=== PATIENT | male | born 1970 | race Caucasian/White ===

== ENCOUNTER 2023-07-01 06:40 | Observation (INO) ==
--- NOTE | 2023-05-22 15:11 | PAT Medication Instructions ---
Medication Instructions Date of Service May 22, 2023 Home Medications amlodipine 5 mg tablet 10 mg PO QAM aspirin 81 mg tablet,delayed release (Adult Low Dose Aspirin) 81 mg PO QAM benazepril 20 mg tablet 20 mg PO QAM cetirizine 10 mg capsule (Zyrtec) 10 mg PO UD PRN allergy symptoms omeprazole 20 mg capsule,delayed release 20 mg PO QAM acetaminophen 650 mg tablet,extended release (Tylenol Arthritis Pain) 650 mg PO UD PRN Pain celecoxib 100 mg capsule (Celebrex) 100 mg PO QAM naltrexone 8 mg-bupropion 90 mg tablet,extended release (Contrave) 2 tab PO BID ascorbic acid (vitamin C) 1,000 mg tablet (Vitamin C) 1 g PO QAM nnplvos-xkxjcapsi-qewz tablet 1 tab PO QAM potassium 99 mg tablet 99 mg PO QAM warfarin 2.5 mg tablet 2.5 mg PO 2XWK warfarin 5 mg tablet 5 mg PO 5XWK ASK your surgeon for instructions celecoxib 100 mg capsule (Celebrex) 100 mg PO QAM ASK your prescriber and surgeon warfarin 2.5 mg tablet 2.5 mg PO 2XWK warfarin 5 mg tablet 5 mg PO 5XWK STOP taking 24 hours before surgery naltrexone 8 mg-bupropion 90 mg tablet,extended release (Contrave) 2 tab PO BID DO NOT take the morning of surgery benazepril 20 mg tablet 20 mg PO QAM cetirizine 10 mg capsule (Zyrtec) 10 mg PO UD PRN allergy symptoms ascorbic acid (vitamin C) 1,000 mg tablet (Vitamin C) 1 g PO QAM avtlwdr-kjtovduqd-iten tablet 1 tab PO QAM potassium 99 mg tablet 99 mg PO QAM Take morning of surgery With a small sip of water, OTHERWISE NOTHING TO EAT OR DRINK AFTER MIDNIGHT: amlodipine 5 mg tablet 10 mg PO QAM aspirin 81 mg tablet,delayed release (Adult Low Dose Aspirin) 81 mg PO QAM (continue as normal unless told otherwise by surgeon) omeprazole 20 mg capsule,delayed release 20 mg PO QAM acetaminophen 650 mg tablet,extended release (Tylenol Arthritis Pain) 650 mg PO UD PRN Pain (if needed) Take evening before surgery cetirizine 10 mg capsule (Zyrtec) 10 mg PO UD PRN allergy symptoms (if needed) acetaminophen 650 mg tablet,extended release (Tylenol Arthritis Pain) 650 mg PO UD PRN Pain (if needed) Other Notes If you have any questions please call us at [phone] or [phone] or [phone] or [phone]
--- NOTE | 2023-05-29 15:57 | Anesthesiology Consultation ---
Date of Service May 29, 2023 Assessment & Plan (1) Encounter for pre-operative examination: - Check coags AM DOS (warfarin instructions per surgeon/prescriber- per patient, has previously done lovenox bridging when holding warfarin in the past. Advised patient that if decision for lovenox bridging again, lovenox would need to be held 24 hours prior to surgery for neuraxial anesthesia- patient voiced understanding and states he will coordinate with [facility]) - COVID screening: Per assessment on 05/29: No known COVID-19 positive contacts or current COVID-19 related symptoms. No recent Covid positive test result. - Outpatient joint assessment: Pt currently scheduled for inpatient pathway. If surgeon requests review for outpatient joint pathway, patient is not recommended candidate for outpatient joint program from anesthesia standpoint. - S/P Right knee arthroscopy, PMM (05/09/20): [place] [facility] [place] Review Chart Review: Acceptable Risk for Surgery and Patient seen in Pre Admission Testing Teaching & Discussion Pre-Anesthesia Teaching/Discussion Notes: Instructed NPO after midnight before surgery,except medications with 15 cc of water. Medication instructions provided according to the PAT guidelines. History Surgery Operation Date: 07/01/23 11:10 Proposed Procedures p Left Total Hip Arthroplasty - Vic Bernal MD Height/Weight Height: 5 ft 9 in Weight: 126.4 kg Allergies Allergy/AdvReac Type Severity Reaction Status Date / Time No Known Allergies Allergy Verified 05/22/23 12:01 Medications Home Medications Medication Instructions Recorded Confirmed Last Taken amlodipine 5 mg tablet 10 mg PO QAM 07/24/18 05/28/23 08/10/21 aspirin 81 mg tablet,delayed 81 mg PO QAM 07/24/18 05/28/23 08/10/21 release (Adult Low Dose Aspirin) benazepril 20 mg tablet 20 mg PO QAM 07/24/18 05/28/23 08/10/21 cetirizine 10 mg capsule (Zyrtec) 10 mg PO UD PRN allergy symptoms 07/24/18 05/28/23 08/10/21 omeprazole 20 mg capsule,delayed 20 mg PO QAM 07/24/18 05/28/23 08/10/21 release acetaminophen 650 mg 650 mg PO UD PRN Pain 11/21/21 05/28/23 Unknown tablet,extended release (Tylenol Arthritis Pain) celecoxib 100 mg capsule (Celebrex) 100 mg PO QAM 08/21/22 05/28/23 Unknown naltrexone 8 mg-bupropion 90 mg 2 tab PO BID 01/15/23 05/28/23 Unknown tablet,extended release (Contrave) ascorbic acid (vitamin C) 1,000 mg 1 g PO QAM 05/22/23 05/28/23 Unknown tablet (Vitamin C) unxkrna-spzosjpbt-yaql tablet 1 tab PO QAM 05/22/23 05/28/23 Unknown potassium 99 mg tablet 99 mg PO QAM 05/22/23 05/28/23 Unknown warfarin 2.5 mg tablet See Rx Instructions PO .COMPLEX 05/28/23 05/28/23 Unknown warfarin 5 mg tablet See Rx Instructions PO .COMPLEX 05/28/23 05/28/23 Unknown Wheeled Walker #1 ea 05/29/23 05/29/23 Unknown Past Medical History Medical History Arthritis of left hip Factor V Leiden GERD (gastroesophageal reflux disease) HTN (hypertension) Hx of lupus anticoagulant disorder Per records Osteoarthritis Pulmonary embolism 2006, taking warfarin Factor V Leiden Sleep apnea CPAP (compliant) Exercise / Class Metabolic Activity II 4-5 Yardwork/Stairs/Walk up hill Past Family History Family History Father Deep vein thrombosis Factor V Leiden Past Surgical History Surgical History History of arthroscopy of right knee Right knee arthroscopy, PMM (05/09/20): [place] [facility] [place] History of tooth extraction WTE Hx of lymph node excision Right groin (2008), "no further issue" Hx of vasectomy Past Anesthesia History No Hx of Anesthesia Complications and No Family Hx of Anesthesia Complications History of PONV No Hx of PONV and No Hx of Motion Sickness Social History Smoking Status: Former smoker tobacco type: cigarettes Do You Dip or Chew Tobacco: No Smoking End Date: Quit 10+ years ago Hx Alcohol Use: Yes Alcohol type: hard liquor alcohol intake frequency: holidays/special occasions only Hx Substance Use: No substance use type: does not use Review of Systems Patient denies chest pain, shortness of breath, dyspnea on exertion, fever, chills, cough, wheezing, palpitations. Physical Exam Vital Signs VITALS BP 128/83 P 71 TEMP 97.9 SP02 95%RA RESP 16 PHYSICAL Full cervical extension range of motion. Full TMJ range of motion. TMD 4 finger breaths Mallampati Score 3 Dentition: intact, + crowns Lungs: clear throughout to auscultation Cardiac: regular rate and rhythm, no murmurs noted Spine: normal Carotid arteries: negative bruit Extremities: no LE edema Thick neck Lab Results Anesthesia Preop Results Results Anesthesia Widget: WBC 8.53 K/ul (4.8-10.8) 05/29/23 Hgb 14.8 g/dl (14.0-18.0) 05/29/23 Hct 42.5 % (42.0-52.0) 05/29/23 Plt 231 K/uL (130-400) 05/29/23 Na 137 mmol/L (136-145) 05/29/23 K 3.8 mmol/L (3.5-5.1) 05/29/23 Cl 104 mmol/L (98-107) 05/29/23 CO2 26 mmol/L (21-32) 05/29/23 BUN 19 mg/dl (6-23) 05/29/23 Creat 0.99 mg/dl (0.6-1.4) 05/29/23 Glucose Level 91 mg/dl (70-99(Fasting)) 05/29/23 PT 22.8 Seconds (9.0-12.0) H 05/29/23 PTT 39.6 Seconds (21.0-31.0) H 05/29/23 INR 2.2 (0.9-1.1) H 05/29/23 Blood Type B Positive 05/29/23 Antibody Screen NEGATIVE 05/29/23 Testing Electrocardiogram Date: 05/29/23 NSR at 74bpm. NS TWA. Chest X-Ray Date: 02/25/23 FINDINGS: Cardiac silhouette is enlarged. Mild right hemidiaphragmatic elevation. No pneumothorax, pleural effusion, airspace consolidation or overt pulmonary edema. Bones of the chest appear grossly intact. IMPRESSION: Cardiomegaly without acute process. Other Testing Head CT Date: 02/25/23 Indication: near syncope There is no hemorrhage, mass effect, or evidence of acute territorial ischemia by CT criteria.
--- NOTE | 2023-06-28 09:43 | History & Physical Report ---
Date of Service June 28, 2023 Assessment & Plan (1) Arthritis of left hip: 53-year-old gentleman with factor V Leiden abnormality with a history of DVT and PE in the past on chronic Coumadin therapy with an IVC filter in place with advanced left hip arthritis. He has failed conservative measures and like to have his hip replaced. Nupathe plan we will take him to the operating do left total hip placement of the risks Mente this procedure plan the patient include but not limited to DVT, PE, , neurological injury, vascular injury, bleeding problems, hematoma formation, need for further surgery in the future, dislocation, fracture, etc. The patient understands and desires to proceed. Informed consent was obtained. He will stop his Coumadin 5 days preop. He is following up with anticoagulation clinic. They are recommending an just to hold the Coumadin with no a Lovenox bridge. We will start him on a loading dose of Coumadin postoperatively. We plan to discharge to home with home health. He will follow back up with us 2 weeks postop. (2) jail (current) use of anticoagulants: (3) Factor V Leiden: (4) Presence of IVC filter: History of Present Illness Chief Complaint: . Persistent, progressive left hip pain and discomfort. Primary Care Provider: Gay Grover MD . 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 He has been through extensive conservative treatment but limited and medical management due to his factor V Leiden abnormality and presence of anticoagulation treatment. He does have factor V Leiden abnormality and on chronic Coumadin with an IVC filter in place. He had several blood clots but nothing since he is had a filter placed. He describes chronic left hip pain. His groin pain thigh pain. The more he is up and the more it hurts. Limps more the day goes on. He is having difficulty doing his work. He like to have his hip fixed. Allergies Allergy/AdvReac Type Severity Reaction Status Date / Time No Known Allergies Allergy Verified 05/22/23 12:01 Home Medications Medication Instructions Recorded Confirmed Type amlodipine 5 mg tablet 10 mg PO QAM 07/24/18 06/25/23 History aspirin 81 mg tablet,delayed 81 mg PO QAM 07/24/18 06/25/23 History release (Adult Low Dose Aspirin) benazepril 20 mg tablet 20 mg PO QAM 07/24/18 06/25/23 History cetirizine 10 mg capsule (Zyrtec) 10 mg PO UD PRN allergy symptoms 07/24/18 06/25/23 History omeprazole 20 mg capsule,delayed 20 mg PO QAM 07/24/18 06/25/23 History release acetaminophen 650 mg 650 mg PO UD PRN Pain 11/21/21 06/25/23 History tablet,extended release (Tylenol Arthritis Pain) celecoxib 100 mg capsule (Celebrex) 100 mg PO QAM 08/21/22 06/25/23 History naltrexone 8 mg-bupropion 90 mg 2 tab PO BID 01/15/23 06/25/23 History tablet,extended release (Contrave) ascorbic acid (vitamin C) 1,000 mg 1 g PO QAM 05/22/23 06/25/23 History tablet (Vitamin C) kyfqats-iftwywpsa-fgyx tablet 1 tab PO QAM 05/22/23 06/25/23 History potassium 99 mg tablet 99 mg PO QAM 05/22/23 06/25/23 History warfarin 2.5 mg tablet See Rx Instructions PO .COMPLEX 05/28/23 06/25/23 History warfarin 5 mg tablet See Rx Instructions PO .COMPLEX 05/28/23 06/25/23 History Wheeled Walker #1 ea 05/29/23 06/25/23 Rx Past Med/Surg History Medical History Arthritis of left hip Factor V Leiden GERD (gastroesophageal reflux disease) HTN (hypertension) Hx of lupus anticoagulant disorder Per records Osteoarthritis Pulmonary embolism 2006, taking warfarin Factor V Leiden Sleep apnea CPAP (compliant) Surgical History History of arthroscopy of right knee Right knee arthroscopy, PMM (05/09/20): LMA#5 at [facility] [place] History of tooth extraction WTE Hx of lymph node excision Right groin (2008), "no further issue" Hx of vasectomy Family History Father Deep vein thrombosis Factor V Leiden Social History Smoking Status: Former smoker Smoking End Date: Quit 10+ years ago; Second Hand Exposure: No; Do You Dip or Chew Tobacco: No; Hx Alcohol Use: Yes Alcohol type: hard liquor Hx Substance Use: No Preferred Language: Persian Communication Ability: Effective Accounting Coordinator Required: No Beliefs That Will Affect Care: None marital status: Current Living Situation: Spouse Other Information That Helps Us Care for You: No Feels Safe at Home: Yes Assistive Devices: CPAP and Glasses Review of Systems All systems reviewed & are unremarkable except as noted in HPI & below. Physical Exam . Physical examination of the left hip reveals a fairly large obese middle- aged male. He walks with a slight bit of a limp. Leg lengths clinically appear pretty equal. He is got pain with hip motion and a lot of stiffness. Internal rotation in neutral at best. No knee effusion. He is neurologically intact. Negative straight leg raise. Constitutional WD/WN, vitals as above Neck trachea midline, no thyromegaly Respiratory normal respiratory effort, lungs clear to auscultation Cardiovascular RRR, no murmur, no edema Gastrointestinal (Abdomen) normal bowel sounds, soft, nontender, no hepatosplenomegaly Results & Data Results & Data Laboratory Results . Diagnostic Findings . X-rays of the left hip were reviewed. Shows advanced hip arthritis. To complete loss of his joint space. He is got osteophytes around the femoral head and acetabulum. Bone density otherwise looks pretty good PG Care Time/CCT Total # of Minutes Spent Total Time Spent with Patient: Total time spent is greater than 50% in coordination of care (as documented) at patient's floor/unit and/or counseling patient: Coding Level of Care Code None Diagnoses Arthritis of left hip M16.12 jail (current) use of anticoagulants Z79.01 Factor V Leiden D68.51 Presence of IVC filter Z95.828
[~2023-07-01 06:40] MED LIST: ACETAMINOPHEN 500 MG TAB PO SCH; BUPIVACAINE 0.5 % 5 MG/1 ML PF 10ML VIAL ONE; BUPIVACAINE LIPOSOME/PF 266 MG, BUPIVACAINE/EPINEPHRINE 50 ML, SODIUM CHLORIDE 0.9% PF ... INFIL SCH; CeleBREX 200 MG CAP PO SCH; FAMOTIDINE 20 MG TAB PO SCH; LR 500ML BOLUS, THEN 15ML/HR IV SCH; LR 60ML/HR IV SCH; METOCLOPRAMIDE HCL 10 MG TABLET PO SCH; Scopolamine 1 MG TDSY TD SCH; TRANEXAMIC ACID 1,000 MG **IV Pre-op IV SCH; dexAMETHasone**PF** 10 MG/ML VIAL IV SCH
--- NOTE | 2023-07-01 06:57 | History & Physical Bridge Note ---
Date of Service July 01, 2023 History & Physical Bridge Note I have examined the patient, reviewed the History & Physical and in the interval since the performance of the History & Physical I have noted the following changes of clinical significance: no changes noted
[2023-07-01] MEDS ORDERED: PROPOFOL IV EMULSION 10 MG/ML 20 ML VIAL IV ONE ×4 (07:44→10:05)
[2023-07-01] MEDS ORDERED: MIDAZOLAM HCL 1 MG/ML 2ML VIAL ONE ×2 (07:44)
[2023-07-01] MEDS ORDERED: MoRPHine SULFATE PF 1 MG/ML 10 ML AMP/VIAL ONE (07:45)
[2023-07-01 08:05] LABS: INR 1.1 (0.9-1.1); Partial Thromboplastin Ratio 1.1; Partial Thromboplastin Time 30.2 Seconds (21.0-31.0); Prothrombin Time 11.9 Seconds (9.0-12.0)
[2023-07-01] MEDS ORDERED: ONDANSETRON INJ 2 MG/ML 2 ML VIAL IV PRN ×2 (08:29→13:26)
[2023-07-01] MEDS ORDERED: ATROPINE SULFATE 0.1 MG/ML 10ML SYR IV PRN (08:29)
[2023-07-01] MEDS ORDERED: ePHEDrine sulfate 50 MG/ML AMP IV PRN (08:29)
[2023-07-01] MEDS ORDERED: fentaNYL citrate PF 100 MCG/2 ML VIAL IV PRN (08:29)
[2023-07-01] MEDS ORDERED: BUPIVACAINE/EPINEPHRINE 0.5% MPF 1:200,000 30 ML VIAL ONE (09:26)
[2023-07-01] MEDS ORDERED: KETAMINE 50 MG/5 ML SYRINGE ONE (09:44)
[2023-07-01] MEDS ORDERED: ONDANSETRON INJ 2 MG/ML 2 ML VIAL ONE (09:49)
--- NOTE | 2023-07-01 11:15 | Operative Report ---
PG Post Operative Report Pre & Post Diagnosis Operation Date: 07/01/23 08:50 Pre-Op Diagnosis: Arthritis of left hip Post-Op Diagnosis: Arthritis of left hip I identified the patient and participated in the time-out.: Yes Procedure Operation Date: 07/01/23 08:50 Actual Procedures p Left Total Hip Arthroplasty(Left) - Vic Bernal MD Surgeon Vic Bernal MD Box Puller Monico Oconnor PA-C Estimated Blood Loss 200 Findings Consistent with Post-Op Diagnosis Operative findings were advanced left hip DJD. 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 Moderate-sized joint effusion. Not much osteophyte formation. Specimens Left femoral head sent for pathology Drains None Anesthesia Type Spinal MAC Complications none Disposition Accompanied Patient To Recovery: No Indications Patient is a 53-year-old gentleman said a several year history of increasing left hip pain discomfort describes gotten worse over time. Been to extensive conservative treatment which became less successful over time. X-rays show advanced left hip arthritis. He elected proceed with left total hip arthroplasty. Description of Procedure Operative implants consist of: 1. Biomet G7 size 56 mm acetabular shell. 2. [place] hole eliminator. 3. 6.5 cancellous acetabular screws 1 at 35 mm in length and 1 to 30 mm length. 4. Highly cross-linked polyethylene liner with a 56 mm outer diameter and 36 mm inner diameter. 5. DePuy Karaya size 14 KLA femoral stem. 6. +1.5/36 mm ceramic articular ball. 7. 2.4 mm Dall-Miles cable x1. The patient was taken to the operating, identified, and placed on the operating table supine position. All contact areas were appropriately padded. IV antibiotics tried by anesthesia team. Spinal anesthetic had been implemented holding area. The patient was then placed in the right lateral decubitus position. An axillary roll was placed. A Stulberg hip positioner was used for positioning. The left hip and leg were then prepped and draped in usual sterile fashion. A posterolateral approach to the left hip was then performed to a curvilinear incision centered over the greater trochanter. Sharp dissection was carried through subcutaneous tissue down to the IT band gluteal fascia. The IT band gluteal fascia then incised longitudinally in line with skin incision. The underlying greater bursa was excised. The piriformis and external rotators along with the hip joint capsule were then released from the posterior aspect hip as a single layer. Great care was taken throughout the procedure protect the sciatic nerve at all times. The hip was internally rotated and dislocated. A femoral neck osteotomy cut was made about 15 mm above the lesser trochanter. Femoral head was removed and sent for pathology. The femur was retracted anteriorly. Attention drawn the acetabulum. The acetabulum labrum was excised. The pulvino artifact was excised. S equential reaming the acetabular was then performed again with a size 47 progressing up to 55. I reamed a little bit with a 56 reamer and then placed a 56 mm G7 acetabular shell in about 40 degrees lateral opening and 20 degrees of anteversion. It was fixed with two 6.5 cancellous acetabular screws. A trial liner was placed. Attention drawn the femur. The proximal femur was entered with a [employer] cutter followed by canal finder. Then broached beginning size 8 and progressing up to a 13. We did a trial of the hip and the 13 was it seemed a little bit tight soft tissue fox. Was fully stable. Pond I dislocation there was still a little bit of rotation and the stem. Therefore we broached up to a 14. The femoral neck cut was a bit uneven and I was not sure whether there was a new crack of the calcar or whether this was just the uneven cut. Is no signs of the but I did place a single Dall-Miles cable prophylactically to prevent any fracture propagation. We then placed a 14 stem and it fit nicely. We elect to use a +1.5 neck in order to optimize soft tissue tension, stability, and equalize leg lengths. We elect to place these implants. Nupathe all trial implants were removed. [place] hole eliminator was placed but highly cross-linked polyethylene liner was placed. A size 14 KLA femoral stem was impacted in position. A +1.5/36 mm ceramic articular ball was placed. Hip was located once again found to be stable. Attention drawn toward closing. The wound was irrigated coconuts pulsatile lavage solution. I did inject locally with 60 cc of half percent Marcaine with epinephrine. The posterior capsule and external rotators then repaired through drill holes in the posterior trochanter with #2 Tycron suture. The IT band gluteal fascia then closed #1 PDS suture. The subcutaneous tissues were closed in 2 layers the deep layer #1 Vicryl suture and subcutaneous tissues with 2-0 Dexon suture in a buried interrupted fashion. Skin was closed skin sandra. Leg was then cleaned and dried and a sterile dressing was Xeroform, 4 x 4's, ABD pad, foam tape was applied. The patient then transferred to the recovery room in stable condition. Patient tolerated the procedure well and there were no complications. Monico Oconnor, my physician operator/assistant foreman, was present for the entire procedure. His assistance was essential and required for appropriate patient positioning, prepping and draping, surgical exposure, performing the technical details of the operation, placement the implants, closure of the wound, and placement of the sterile bandage. I attest to the content of the Intraoperative Record and any orders documented therein. Any exceptions are noted below.
[2023-07-01] MEDS ORDERED: MEPERIDINE HCL 25 MG/ML CARP/VIAL ONE (11:23)
[2023-07-01] MEDS ORDERED: MEPERIDINE HCL 25 MG/ML CARP/VIAL IV ONE (11:37)
--- NOTE | 2023-07-01 11:59 | Hospitalist Consultation ---
Date of Consultation July 01, 2023 Assessment & Plan (1) New onset left bundle branch block (LBBB): Intraoperative development of intermittent left bundle branch block Noted and captured on EKG, new. Bundle is Intermittent on monitoring while in PACU - EKG 07/01/2023 1140: Sinus bradycardia, left bundle branch block. QTc 437. QRS 148. - Preop EKG 07/01/2023 758: Normal sinus rhythm, QTc 436. QRS 90. No left bundle High sensitive troponin normal, 2-hour repeat pending Echo with EF 50-55%, LV systolic function normal, wall motion is normal. Technically challenging study. Patient without preceding anginal symptoms or chest pain. No family history of NM. No tobacco use. Does have history of ANTONIO, hypertension. Chest pain-free at time of assessment. Vital signs stable, normotensive at assessment Cardiology consulted. Appropriate for monitoring on telemetry overnight. Can defer heparinization/additional work-up at this time as long as he remains pain- free and no abnormalities on troponin/echo are noted. Warfarin 7.5 mg at 9 PM, then additional 7.5 mg tomorrow at 5 PM. +3 days Lovenox 40 mg starting 07/02 due to high risk as long as hemoglobin is stable BMP/mag pending. Optimize potassium 4.0, magnesium 2.0 S/p left hip total arthroplasty / arthritis 200 cc blood loss, managing left bundle branch block as above otherwise uncomplicated Pain control, ambulation, surgical site management per primary team Hypertension Resume BenzePril 07/01 if renal panel normal and normal/high BP. If creatinine is elevated or BP remains borderline/low hold and resume 07/03 Resume amlodipine 5 mg every morning on 07/02 History of DVT, factor V Leiden Warfarin as noted, Lovenox as noted Continue aspirin 81 mg daily DVT prophylaxis: Anticoagulation as noted above Diet: Per primary team Disposition: PCU CODE STATUS: Full code (2) Arthritis of left hip: (3) Presence of IVC filter: (4) Factor V Leiden: (5) S/P hip replacement: History of Present Illness Attending Physician: Vic Bernal MD History of Present Illness Bonifacio is a 53-year-old male with past medical history of factor V Leiden, IVC filter, warfarin anticoagulation with goal INR 23, PE, and no history of NM/stents/stroke who presents as a consultation for intraoperative development of left bundle branch block. Bonifacio is seen at the bedside while in PACU. He reports that he feels well and has no chest pain, chest pressure, lightheadedness, dizziness, shortness of breath. He reports his exercise activity [employer]MINISTR[employer]IVE PROFESSION[employer] has been limited due to his hip pain, but he has not had any exertional chest pain, chest pressure, shortness of breath, or diaphoresis in the previous weeks or months. He has no history of coronary disease or heart attack. He denies any family history of heart attacks, arrhythmia, heart failure, and stroke. He does endorse a history of factor V Leiden for which she is on warfarin typically, this has been perioperatively help. He notes he did develop PEs while on therapeutic levels of warfarin and had a IVC placed. He was resumed on warfarin and has not had any recurrent blood clots since. He did take a low-dose aspirin this morning, and was scheduled to resume his warfarin tomorrow. He reports he has a history of hypertension well-controlled on outpatient medicines, has been intermittently high with pain from his hip but overall has been "good " Denies history of hyperlipidemia Denies history of current or former tobacco use Endorses history of ANTONIO well-controlled on CPAP Warfarin instruction review: Preop warfarin: Last dose 06/25/2023 Warfarin to be held 06/26/2023 - 06/30/2023, continue aspirin daily during that time Load warfarin 7.5 mg on 07/01 and 07/02 Resume warfarin 2.5 mg Friday/ and 5 mg remaining days on 07/03 Can bridge with Lovenox 40 mg 07/02 for 3 days due to high risk Medical History: Reviewed Medications: Reviewed Surgical History: Reviewed Family history: Reviewed Allergies: Reviewed Social History: Denies tobacco/alcohol use Code Status: Full code Allergies Allergy/AdvReac Type Severity Reaction Status Date / Time No Known Allergies Allergy Verified 07/01/23 07:06 Home Medications Medication Instructions Recorded Confirmed Type amlodipine 5 mg tablet 10 mg PO QAM 07/24/18 07/01/23 History aspirin 81 mg tablet,delayed 81 mg PO QAM 07/24/18 07/01/23 History release (Adult Low Dose Aspirin) benazepril 20 mg tablet 20 mg PO QAM 07/24/18 07/01/23 History cetirizine 10 mg capsule (Zyrtec) 10 mg PO UD PRN allergy symptoms 07/24/18 07/01/23 History omeprazole 20 mg capsule,delayed 20 mg PO QAM 07/24/18 07/01/23 History release acetaminophen 650 mg 650 mg PO UD PRN Pain 11/21/21 07/01/23 History tablet,extended release (Tylenol Arthritis Pain) celecoxib 100 mg capsule (Celebrex) 100 mg PO QAM 08/21/22 07/01/23 History naltrexone 8 mg-bupropion 90 mg 2 tab PO BID 01/15/23 07/01/23 History tablet,extended release (Contrave) ascorbic acid (vitamin C) 1,000 mg 1 g PO QAM 05/22/23 07/01/23 History tablet (Vitamin C) crlvlys-nabgdxbvx-rjsg tablet 1 tab PO QAM 05/22/23 07/01/23 History potassium 99 mg tablet 99 mg PO QAM 05/22/23 07/01/23 History warfarin 2.5 mg tablet See Rx Instructions PO .COMPLEX 05/28/23 07/01/23 History warfarin 5 mg tablet See Rx Instructions PO .COMPLEX 05/28/23 07/01/23 History Wheeled Walker #1 ea 05/29/23 06/25/23 Rx acetaminophen 500 mg tablet 1,000 mg PO TID pain 30 days #180 06/29/23 07/01/23 Rx (Tylenol Extra Strength) tabs ondansetron 4 mg disintegrating 4 mg PO Q8 PRN nausea #20 tabs 06/29/23 07/01/23 Rx tablet sennosides 8.6 mg tablet (Senokot) 8.6 mg PO BID prevent constipation 06/29/23 07/01/23 Rx 14 days #28 tabs tramadol 50 mg tablet 50 - 100 mg PO Q6 PRN pain #40 tabs 06/29/23 07/01/23 Rx Patient History Medical History Arthritis of left hip Factor V Leiden GERD (gastroesophageal reflux disease) HTN (hypertension) Hx of lupus anticoagulant disorder Per records Osteoarthritis Pulmonary embolism 2006, taking warfarin Factor V Leiden Sleep apnea CPAP (compliant) Surgical History History of arthroscopy of right knee Right knee arthroscopy, PMM (05/09/20): L[place]#5 [place] [facility] [place] History of tooth extraction WTE Hx of lymph node excision Right groin (2008), "no further issue" Hx of vasectomy Family History Father Deep vein thrombosis Factor V Leiden Social History Smoking Status: Former smoker Smoking End Date: Quit 10+ years ago; Second Hand Exposure: No; Do You Dip or Chew Tobacco: No; Hx Alcohol Use: Yes Alcohol type: hard liquor Hx Substance Use: No Preferred Language: Indonesian Communication Ability: Effective Certified Hearing Instrument Dispenser Required: No Beliefs That Will Affect Care: None marital status: Current Living Situation: Spouse Other Information That Helps Us Care for You: No Feels Safe at Home: Yes Assistive Devices: CPAP and Glasses Review of Systems Review of Systems: All systems reviewed & are unremarkable except as noted in Subjective Physical Exam Physical Exam: General: A&Ox3. NAD. Cooperative. HEENT: Atraumatic, normocephalic. Vision/hearing intact Pulm: CTAB A&P. -wheezes, -rales, -rhonchi. Symmetrical chest rise. No increased work of breathing. No respiratory distress. Cardiac: RRR, -mrg. Radial pulses intact and symmetrical. Extremities: Sensation to soft touch is beginning to return, intact in feet bilaterally and symmetrical. Able to ankle dorsiflex/plantarflex at the bedside, limited toe flexion/extension. PT pulse intact bilaterally. Results & Data Results & Data Vital Signs (Past 12 Hours) Vital Signs Temp Pulse Resp BP Pulse Ox O2 Del Method 07/01/23 07:16 36.5 C 74 20 135/84 97 Room Air PG Care Time/CCT Total # of Minutes Spent Total Time Spent with Patient: Total time spent is greater than 50% in coordination of care (as documented) at patient's floor/unit and/or counseling patient: Coding Level of Care Code 82929 IN/OBS CONSULT LVL 5,80M Diagnoses New onset left bundle branch block (LBBB) I44.7 Arthritis of left hip M16.12 Presence of IVC filter Z95.828 Factor V Leiden D68.51 S/P hip replacement Z96.649
--- NOTE | 2023-07-01 13:16 | XCELERA ---
[id number]
[2023-07-01] MEDS ORDERED: bisacodyL 10 MG SUPP PR PRN (13:26)
[2023-07-01] MEDS ORDERED: traMADol HCL 50 MG TABLET PO PRN (13:26)
[2023-07-01] MEDS ORDERED: HYDROmorphone INJ 0.5 MG/0.5 ML SYR IV PRN (13:26)
[2023-07-01] MEDS ORDERED: diphenhydrAMINE Capsule 25 MG CAP PO PRN (13:26)
[2023-07-01] MEDS ORDERED: METOCLOPRAMIDE HCL INJ 5 MG/ML 2 ML VIAL IV PRN (13:26)
[2023-07-01] MEDS ORDERED: TAMSULOSIN HCL 0.4 MG CAP PO PRN (13:26)
[2023-07-01] MEDS ORDERED: MAGNESIUM HYDROXIDE SUSP 30 ML UDC PO PRN (13:26)
[2023-07-01] MEDS ORDERED: NALOXONE HCL 0.4 MG/1 ML VIAL/CARP IV PRN (13:26)
[2023-07-01] MEDS ORDERED: ALUMINUM/MAGNESIUM SUSP 30 ML UDC PO PRN (13:26)
[2023-07-01] MEDS: SODIUM CHLORIDE 0.9% 1,000 ML IV SCH ×2 (13:40→21:12)
[2023-07-01] MEDS ORDERED: ACETAMINOPHEN 500 MG TAB PO SCH (14:00)
[2023-07-01] MEDS ORDERED: CETIRIZINE HCL 10 MG TABLET PO PRN (14:02)
--- NOTE | 2023-07-01 14:20 | Anesthesiology Progress Note ---
Date of Service July 01, 2023 Anesthesia Post Procedure Vital Signs Vital Signs: Temp Pulse Pulse Resp BP Pulse Ox O2 Del Method 07/01/23 13:15 71 15 123/72 97 Room Air 07/01/23 13:00 70 16 115/68 95 Room Air 07/01/23 12:45 84 14 114/73 96 Room Air 07/01/23 12:35 36.7 C 63 14 112/76 92 Room Air 07/01/23 12:25 62 15 105/64 94 Room Air 07/01/23 12:15 76 16 125/68 94 Room Air 07/01/23 12:05 81 15 122/76 94 Room Air 07/01/23 11:55 63 15 118/65 94 Room Air 07/01/23 11:45 68 20 119/68 100 Oxymask 07/01/23 11:35 69 12 122/66 100 Oxymask 07/01/23 11:25 72 17 125/67 100 Oxymask 07/01/23 11:15 86 18 118/75 100 Oxymask 07/01/23 11:05 36.2 C L 93 H 19 115/86 100 Oxymask 07/01/23 07:16 36.5 C 74 20 135/84 97 Room Air O2 Flow Rate 07/01/23 13:15 07/01/23 13:00 07/01/23 12:45 07/01/23 12:35 07/01/23 12:25 07/01/23 12:15 07/01/23 12:05 07/01/23 11:55 07/01/23 11:45 2 07/01/23 11:35 4 07/01/23 11:25 4 07/01/23 11:15 6 07/01/23 11:05 6 07/01/23 07:16 Transfer of Care Handoff Completed per policy Notes Mental Status: alert / awake / arousable Patient Amnestic to Procedure: Yes Nausea / Vomiting: adequately controlled Pain: adequately controlled Airway Patency, RR, SpO2: stable & adequate BP & HR: see Notes below Hydration State: stable & adequate Neuraxial Anesthesia: was administered and sensory block is resolving Anesthetic Complications: see Notes below and Pt Satisfied with anesthetic care Notes: In recovery, patient noted to be in what appeared to be new onset LBBB. He has no previous hx/o LBBB per our ECG's in our system. Patient does have risk factors for CAD so upon formal 12 lead ECG showing this dysrhythmia, consulted [facility] [place] hospitalist for further management and treatment. They ordered STAT troponins and inpatient TTE. Of note, patient denied any SOB, chest pain/pressure, dizziness. His only complaint postoperatively was a dry throat. SAB was resolving and pain was well controlled. Vitals were stable. Patient to be transferred to PCU when bed available. Plan discussed with patient and questions answered.
[2023-07-01] MEDS: ACETAMINOPHEN 500 MG TAB PO SCH ×2 (14:23→21:20)
[2023-07-01] MEDS: KETOROLAC 30 MG/ML VIAL IV SCH ×2 (14:24→19:30)
[2023-07-01] MEDS ORDERED: TRANEXAMIC ACID / 0.7% NACL 1,000 MG/100 ML BAG IV SCH (17:15)
[2023-07-01 17:54] LABS: BUN Creatinine Ratio 14.1 (10-20); Calcium 8.9 mg/dl (8.6-10.3); Creatinine Clr Calc Pharmacy 113.5 ml/min; Est GFR (African American) 101.8 ml/min; Est GFR (Non-African American) 87.8 ml/min; Magnesium 1.3 mg/dl (1.7-2.4); Potassium 4.2 mmol/L (3.5-5.1)
[2023-07-01 18:01] LABS: Troponin I High Sensitivity 5.6 pg/ml (0-20)
--- NOTE | 2023-07-01 18:03 | XRay Report ---
XR hip 1V LT w pelvis CLINICAL HISTORY: IN PACU - Post Surgical TECHNIQUE: 2 views of the left hip and single frontal view of the pelvis were obtained. Comparison: Comparison is made to left hip radiographs 08/23/2022 FINDINGS: Patient is status post total hip arthroplasty with expected postsurgical changes including soft tissu e swelling and subcutaneous emphysema. IMPRESSION: No evidence of acute osseous injury. ACT 112: Negative or not required by law. Electronically signed by: Mustapha Cool M.D. 07/01/2023 6:01 PM
[2023-07-01] MEDS: ceFAZolin 2000MG 2,000 MG/15 ML SYR IV SCH (18:09)
[2023-07-01] MEDS: ASCORBIC ACID 500 MG TAB PO SCH (18:10)
[2023-07-01] MEDS: Scopolamine CHECK PATCH PLACEMENT SCH (18:10)
[2023-07-01] MEDS ORDERED: SENNA 8.6 MG TAB PO SCH (21:00)
[2023-07-01] MEDS ORDERED: WARFARIN SOD 7.5 MG TAB PO ONE (21:00)
[2023-07-01] MEDS: SENNA 8.6 MG TAB PO SCH (21:10)
[2023-07-01] MEDS: DOCUSATE SODIUM 100 MG CAP PO SCH (21:21)
[2023-07-02] MEDS: Scopolamine CHECK PATCH PLACEMENT SCH ×2 (00:41→08:52)
[2023-07-02] MEDS: KETOROLAC 30 MG/ML VIAL IV SCH ×2 (02:17→08:47)
[2023-07-02] MEDS: ceFAZolin 2000MG 2,000 MG/15 ML SYR IV SCH (02:19)
[2023-07-02] MEDS: SODIUM CHLORIDE 0.9% 1,000 ML IV SCH (04:27)
[2023-07-02 07:39] LABS: INR 1.1 (0.9-1.1)
[2023-07-02 07:45] LABS: Basophils # (auto) 0.02 K/uL (0.00-0.20); Basophils % (auto) 0.1 %; Hematocrit (blood only) 41.9 % (42.0-52.0); Hemoglobin 14.5 g/dl (14.0-18.0); Immature Granulocytes # (auto) 0.13 K/uL (0.01-0.20); Immature Granulocytes % (auto) 0.8 %; Lymphocytes # (auto) 1.18 K/uL (1.20-3.40); Mean Corpuscular Hemoglobin 30.3 pg (25.0-34.0); Mean Corpuscular Hgb Conc 34.6 g/dL (32.0-36.0); Mean Corpuscular Volume 87.7 fL (80.0-100.0); Mean Platelet Volume 8.8 fL (9.4-12.4); Monocytes # (auto) 0.99 K/uL (0.11-0.59); Monocytes % (auto) 5.8 %; Neutrophils # (auto) 14.61 K/uL (1.40-6.50); Neutrophils % (auto) 86.3 %; Platelet Count 263 K/uL (130-400); RDW Coefficient of Variation 13.7 % (11.5-14.5); RDW Standard Deviation 44.1 fL (36.4-46.3); Red Blood Count 4.78 M/uL (4.70-6.10); White Blood Count 16.93 K/ul (4.8-10.8)
[2023-07-02 07:57] LABS: BUN Creatinine Ratio 15.3 (10-20); Calcium 8.8 mg/dl (8.6-10.3); Creatinine Clr Calc Pharmacy 101.3 ml/min; Est GFR (African American) 88.6 ml/min; Est GFR (Non-African American) 76.5 ml/min; Potassium 4.1 mmol/L (3.5-5.1)
[2023-07-02] MEDS ORDERED: dexAMETHasone 10 MG in SYRINGE 0 ML IV SCH (08:00)
--- NOTE | 2023-07-02 08:39 | Hospitalist Progress Note ---
Date of Service July 02, 2023 Assessment & Plan (1) New onset left bundle branch block (LBBB): Plan: Intraoperative development of intermittent left bundle branch block Noted and captured on EKG, new. Bundle is Intermittent on monitoring while in PACU - EKG 07/01/2023 1140: Sinus bradycardia, left bundle branch block. QTc 437. QRS 148. - Preop EKG 07/01/2023 758: Normal sinus rhythm, QTc 436. QRS 90. No left bundle High sensitive troponin normal, repeat normal Echo with EF 50-55%, LV systolic function normal, wall motion is normal. Technically challenging study. Patient without preceding anginal symptoms or chest pain. No family history of MT. No tobacco use. Does have history of ANTONIO, hypertension. Chest pain-free at time of assessment. Vital signs stable, normotensive at assessment Cardiology consulted. I spoke with Dr. Woody prior to discharge she is agreeable that the patient should go home and follow-up with cardiology as an outpatient Warfarin 7.5 mg at 9 PM, then additional 7.5 mg tomorrow at 5 PM. +3 days Lovenox 40 mg starting 07/02 due to high risk as long as hemoglobin is stable S/p left hip total arthroplasty 2/ arthritis 200 cc blood loss, managing left bundle branch block as above otherwise uncomplicated Pain control, ambulation, surgical site management per primary team Hypertension Resume BenzePril 07/01 if renal panel normal and normal/high BP. If creatinine is elevated or BP remains borderline/low hold and resume 07/03 Resume amlodipine 5 mg every morning on 07/02 History of DVT, factor V Leiden Warfarin as noted, Lovenox as noted Continue aspirin 81 mg daily DVT prophylaxis: Anticoagulation as noted above CODE STATUS: Full code (2) Arthritis of left hip: (3) Presence of IVC filter: (4) Factor V Leiden: (5) S/P hip replacement: Admission and Anticipated Discharge Date Admission Date: July 01, 2023 Subjective Patient seen in the company of his he have no complaints or problems recovering well from his hip issue. We discussed etiologies of possible left bundle branch block versus possible fact that this is congenital or the way he has been in the past since he is not had frequent EKGs or monitoring. Physical Exam Physical Exam: Card exam is regular lungs are clear distal extremities are with sensation intact Results & Data Results & Data Vital Signs (Past 12 Hours) Vital Signs Temp Pulse Pulse Resp BP Pulse Ox O2 Del Method 07/02/23 07:21 70 07/02/23 07:06 98.2 F 60 18 122/73 96 Room Air 07/02/23 02:27 97.7 F 52 L 16 127/69 96 Room Air 07/02/23 00:00 75 07/01/23 22:29 98.8 F 59 L 18 127/75 95 Room Air Laboratory Results Magnesium is reviewed her low potassium is replete we will order Slow-Mag on the discharge paperwork PG Care Time/CCT Total # of Minutes Spent Total Time Spent with Patient: Total time spent is greater than 50% in coordination of care (as documented) at patient's floor/unit and/or counseling patient: Coding Level of Care Code 35348 SUB INP/OBS CARE 2/35MIN Diagnoses New onset left bundle branch block (LBBB) I44.7 Arthritis of left hip M16.12 Presence of IVC filter Z95.828 Factor V Leiden D68.51 S/P hip replacement Z96.649
[2023-07-02] MEDS: DOCUSATE SODIUM 100 MG CAP PO SCH (08:50)
[2023-07-02] MEDS: ASCORBIC ACID 500 MG TAB PO SCH (08:50)
[2023-07-02] MEDS: SENNA 8.6 MG TAB PO SCH (08:51)
[2023-07-02] MEDS: ACETAMINOPHEN 500 MG TAB PO SCH ×2 (08:52→13:43)
[2023-07-02] MEDS ORDERED: ENALAPRIL MALEATE 10 MG TAB PO SCH (09:00)
[2023-07-02] MEDS ORDERED: NON-FORMULARY MEDICATION (Ascorbic Acid (Vitamin C) [Vitamin C] 1,000 mg Tablet) PO SCH (09:00)
[2023-07-02] MEDS ORDERED: MULTIVITAMIN TAB PO SCH (09:00)
[2023-07-02] MEDS ORDERED: ASPIRIN 81 MG ECTAB PO SCH (09:00)
[2023-07-02] MEDS ORDERED: POTASSIUM CITRATE 10 MEQ TAB PO SCH (09:00)
[2023-07-02] MEDS ORDERED: amLODIPine BESYLATE 5 MG TAB PO SCH (09:00)
[2023-07-02] MEDS ORDERED: PANTOprazole 40 MG TAB PO SCH (09:00)
[2023-07-02 09:51] LABS: BUN Creatinine Ratio 15.3 (10-20); Calcium 9.2 mg/dl (8.6-10.3); Creatinine Clr Calc Pharmacy 95.3 ml/min; Est GFR (African American) 82.3 ml/min; Magnesium 1.4 mg/dl (1.7-2.4); Potassium 3.8 mmol/L (3.5-5.1)
--- NOTE | 2023-07-02 10:59 | Orthopedic Progress Note ---
Date of Service July 02, 2023 Assessment & Plan (1) S/P hip replacement: 53-year-old gentleman postop day 1 from a left hip replacement orthopedically he is doing fine. Pain is controlled. He is mobilizing well. Getting around pretty safely. No chest pain or shortness of breath. Extensive work-up by has been negative. Plan: 1. DVT prophylaxis including thigh-high teds, SCDs, back on his Coumadin. He is also on a baby aspirin. He will get 7.5 mg of Coumadin today and then back to his regular dose of starting . 2. PT OT. Weight-bear as tolerated left total hip protocol. 3. Pain control doing okay with current pain regimen. 4. Disposition he is orthopedically okay for discharge. I will check with medicine about the possible discharge today if doing okay. (2) New onset left bundle branch block (LBBB): Subjective . 53-year-old gentleman with multiple medical comorbidities postop day 1 from left hip replacement. He is doing well. His pain is very well controlled. Therapy went pretty well. No chest pain or shortness of breath. Not feeling dizzy or lightheaded. Review of Systems All systems reviewed & are unremarkable except as noted in HPI & below. Physical Exam . Physical examination reveals a pleasant large obese gentleman in. A sitting up in his bedside chair looks pretty comfortable. Examination left hip and leg reveals dressing clean dry and intact. The leg lengths are equal. Hips located. He is neurologically intact. Results & Data Results & Data Laboratory Results . Hemoglobin is 14.5 hematocrit 41.9. Electrolytes are stable. Diagnostic Findings . PG Care Time/CCT Total # of Minutes Spent Total Time Spent with Patient: Total time spent is greater than 50% in coordination of care (as documented) at patient's floor/unit and/or counseling patient: Coding Level of Care Code 36185 Post Operative Follow-Up Diagnoses S/P hip replacement Z96.649 New onset left bundle branch block (LBBB) I44.7
[2023-07-02] MEDS ORDERED: ZINC SULFATE 220 MG CAPSULE PO SCH (11:30)
[2023-07-02] MEDS ORDERED: MAGNESIUM OXIDE 400 MG TAB PO SCH (11:30)
[2023-07-02] MEDS ORDERED: CALCIUM CARBONATE 1250MG TAB PO SCH (11:30)
--- NOTE | 2023-07-02 13:32 | Communication Note ---
Date of Service: July 02, [address] Woody and barry on cardiology standpoint to be dc
--- NOTE | 2023-07-02 14:39 | Electrocardiogram Report ---
Test Reason : Blood Pressure : / mmHG Vent. Rate : 065 BPM Atrial Rate : 065 BPM P-R Int : 150 ms QRS Dur : 090 ms QT Int : 420 ms P-R-T Axes : 042 003 063 degrees QTc Int : 436 ms Normal sinus rhythm When compared with ECG of 29-MAY-2023 16:18, No significant change was found Confirmed by Singh Woody ([id number]) on 07/02/2023 2:39:04 PM Referred By: Vic Bernal Confirmed By:Jose Alfredo Woody
--- NOTE | 2023-07-02 14:47 | Electrocardiogram Report ---
Test Reason : Blood Pressure : / mmHG Vent. Rate : 058 BPM Atrial Rate : 058 BPM P-R Int : 162 ms QRS Dur : 148 ms QT Int : 446 ms P-R-T Axes : 050 040 198 degrees QTc Int : 437 ms Sinus bradycardia Left bundle branch block Abnormal ECG When compared with ECG of 01-JUL-2023 07:58, (unconfirmed) Left bundle branch block is now Present Minimal criteria for Anterior infarct are no longer Present Confirmed by Singh Woody ([id number] on 07/02/2023 2:47:08 PM Referred By: Vic Bernal Confirmed By:Jose Alfredo Woody
[2023-07-02] MEDS ORDERED: WARFARIN SOD 7.5 MG TAB PO SCH (16:00)
[2023-07-02 16:05] LABS: Lyme Ab IgG w/WB Rflx Negative (Negative); Lyme Ab IgM w/WB Rflx Negative (Negative)
== END 2023-07-02 15:30 | disposition home health service (06) ==
LOC: ASU 06:40 → PACUINP 06:40 → 2S 16:40